=== PATIENT | female | born 1980 | race Caucasian/White ===

== ENCOUNTER → 2017-02-17 | Outpatient (CLI) | payer BC ==
[~2017-02-17] MED LIST: HYDR-5688 PO; IBUP-103 PO; RIZA10TA18 PO
--- NOTE | 2017-02-17 11:47 | DIAGNOSTIC IMAGING REPORT ---
RIGHT FIFTH FINGER 3 VIEWS CLINICAL HISTORY: Right fifth finger pain. Trauma. COMPARISON: None. DISCUSSION: No fractures or dislocations are visualized. IMPRESSION: No fractures or dislocations identified. Electronically signed by: Rusty Thacker M.D. 02/17/2017 11:46 AM Dictated Date/Time: 02/17/2017 11:45 AM
== END | disposition home or self-care (01) ==
LOC: C.RAD1850 11:21
PROVIDERS: ATTEND Family Medicine
DX: M79.644 Pain in right finger(s) (principal)